=== PATIENT | female | born 1965 | race Caucasian/White ===

== ENCOUNTER 2019-04-01 12:36 | Emergency (ER) | payer MEDICARE ==
--- NOTE | 2019-04-01 12:40 | EDM.PDOC ---
ED HPI GENERAL MEDICAL PROBLEM - General Stated Complaint: LEFT KNEE PAIN Time Seen by Provider: 04/01/19 12:38 Source of Information: Reports: Patient History Limitations: Reports: No Limitations - History of Present Illness INITIAL COMMENTS - FREE TEXT/NARRATIVE: HISTORY AND PHYSICAL: History of present illness: Patient is a 53-year-old female presents to the ED today with concern of left knee pain after she was playing with her daughter on the couch and got kicked in the left knee earlier today. Patient states she had a bad ski accident many years ago which she has had issues with her knee in the past. She states she has received cortisone injections in the past because of her ski accident. Patient states she's been able to walk on her knee but does have pain in doing so. Patient states she has not taken anything for her symptoms. Patient denies any other health history or any other symptoms or concerns at this time. Patient denies fever, chills, chest pain, shortness of breath, or cough. Denies headache, neck stiff ness, change in vision, syncope, or near syncope. Denies nausea, vomiting, abdominal pain, diarrhea, constipation, or dysuria. Has not noted any blood in urine or stool. Patient has been eating and drinking appropriately. Review of systems: As per history of present illness and below otherwise all systems reviewed and negative. Past medical history: As per history of present illness and as reviewed below otherwise noncontributory. Surgical history: As per history of present illness and as reviewed below otherwise noncontributory. Social history: See social history for further information Family history: As per history of present illness and as reviewed below otherwise noncontributory. Physical exam: General: Patient is alert, oriented, and in no acute distress. Patient sitting comfortably on exam table. HEENT: Atraumatic, normocephalic, pupils equal and reactive bilaterally, negative for conjunctival pallor or scleral icterus, mucous membranes moist, TMs normal bilaterally, throat clear, neck supple, nontender, trachea midline. No drooling or trismus noted. No meningeal signs. No hot potato voice noted. Lungs: Clear to auscultation, breath sounds equal bilaterally, chest nontender. Heart: S1S2, regular rate and rhythm without overt murmur Abdomen: Soft, nondistended, nontender. Negative for masses or hepatosplenomegaly. Negative for costovertebral tenderness. Pelvis: Stable nontender. Genitourinary: Deferred. Rectal: Deferred. Skin: Intact, warm, dry. No lesions or rashes noted. Extremities: Atraumatic, negative for cords or calf pain. Neurovascular unremarkable. No obvious deformity of the left knee. Patient does have full range of motion of the complete left extremity without difficulty or deficit. Patient does have moderate pain with varus and valgus stress of the knee. Dorsalis pedis and posterior tibial pulses grossly intact of the left lower 70 with capillary refill less than 2 seconds. Neuro: Awake, alert, oriented. Cranial nerves II through XII unremarkable. Cerebellum unremarkable. Motor and sensory unremarkable throughout. Exam nonfocal. Notes: Discussed the importance for follow-up with an orthopedic provider Voices understanding and is agreeable to plan of care. Denies any further questions or concerns at this time. Diagnostics: Knee Xray (No XR taken, patient left ED) Therapeutics: Knee immobilizer, crutches (Patient left ED AMA before discharge) Prescription: None Impression: Left knee pain/injury Left against medical advice Plan: 1. Patient left ED AMA before discharge Definitive disposition and diagnosis as appropriate pending reevaluation and review of above. left knee Pain Score (Numeric/FACES): 9 - Related Data Allergies Allergy/AdvReac Type Severity Reaction Status Date / Time No Known Allergies Allergy Verified 04/01/19 12:51 Home Meds: Home Meds Venlafaxine [Effexor] 200 mg PO BID 04/01/19 [History] lamoTRIgine [Lamotrigine] 100 mg PO BID 04/01/19 [History] ED ROS GENERAL - Review of Systems Review Of Systems: ROS reveals no pertinent complaints other than HPI. ED EXAM, GENERAL - Physical Exam Exam: See Below (see dictation) Course - Vital Signs Last Recorded V/S: Last Vital Signs Temp 36.0 C 04/01/19 12:48 Pulse 80 04/01/19 12:48 Resp 18 04/01/19 12:48 BP 136/74 04/01/19 12:48 Pulse Ox 98 04/01/19 12:48 - Orders/Labs/Meds Orders: Active Orders 24 hr Category Date Time Status Knee 3V Lt [CR] Stat Exams 04/01/19 12:38 Ordered DME for Discharge [COMM] Stat Oth 04/01/19 13:05 Ordered Departure - Departure Time of Disposition: 13:19 Disposition: Against Medical Advice 07 Clinical Impression: Left against medical advice Knee injury Qualifiers: Encounter type: initial encounter Laterality: left Qualified Code(s): S89.92XA - Unspecified injury of left lower leg, initial encounter - Discharge Information Referrals: PCP,None [Primary Care Provider] - Additional Instructions: Patient left before imaging/diagnostics or discharge was given. - My Orders Last 24 Hours: My Active Orders 04/01/19 12:38 Knee 3V Lt [CR] Stat 04/01/19 13:05 DME for Discharge [COMM] Stat - Assessment/Plan Last 24 Hours: My Active Orders 04/01/19 12:38 Knee 3V Lt [CR] Stat 04/01/19 13:05 DME for Discharge [COMM] Stat
== END 2019-04-01 13:19 | disposition left against medical advice (07) ==
LOC: MW.ED 12:36
DX: S89.92XA Unspecified injury of left lower leg, initial encounter (principal); Z79.899 Other long term (current) drug therapy; W50.1XXA Accidental kick by another person, initial encounter; Y92.009 Unspecified place in unspecified non-institutional (private) residence as the place of occurrence of the external cause
CPT/HCPCS: 99283